=== PATIENT | male | born 1965 | race Caucasian/White ===

== ENCOUNTER 2019-05-04 06:05 | Day surgery (SDC) | payer OTHER ==
[~2019-05-04] VITALS: Ht 193 cm; Wt 132.0 kg
[~2019-05-04 06:05] MED LIST: ALBU90OI INH; AMIT50 PO; Aspir 8181 MG PO; ESCI10 PO; FLUSAL2505 INH; NEBI5 PO; NITR.4SL SL; OMEP20ER PO; TIOT18 INH; ZOLP10 PO
--- NOTE | 2019-05-04 09:23 | NUR ---
Pt received from Sanchez Loyola RN, Pt wide awake in recliner chair. Pt has pain of 4 in lower back. Pt IV infusing 650 rosetta NS left fa #20 grade 0. Pt with brachial site right arm and right radial site wnl. Pt eating breakfast call light given. Pt stable.
--- NOTE | 2019-05-04 11:11 | NUR ---
Pt at 1100: 2 cc air removed from tr-band 1115: 2 cc air removed from tr-band no bleeding site soft nontender.
--- NOTE | 2019-05-04 12:06 | NUR ---
1130: 2 cc removed tr-band 1145; tr-band 2 cc removed. 1200; all air removed, cloth dot applied at radial as well as brachial site. No bleeding or hematoma noted. Pt ambulatory. IV removed catheter intact #20 left fa. reviewed information regarding discharge Pt in good spirits ambulated outside with @ 1210
== END 2019-05-04 13:16 | disposition home or self-care (01) ==
LOC: MHTC 06:05
DX: I25.119 Atherosclerotic heart disease of native coronary artery with unspecified angina pectoris (principal); I10 Essential (primary) hypertension; J43.9 Emphysema, unspecified; Z79.899 Other long term (current) drug therapy; Z79.82 Long term (current) use of aspirin; Z79.1 Long term (current) use of non-steroidal anti-inflammatories (NSAID); Z87.891 Personal history of nicotine dependence
CPT/HCPCS: 93456; 99152; 99153; A9270; C1769; C1894; J1644; J2250; J3010; J7030; Q9967